=== PATIENT | female | born 1985 | race Caucasian/White ===

== ENCOUNTER 2019-05-08 05:45 | Inpatient (IN) | payer MEDICAID ==
[2019-05-08] VITALS (11 sets, daily range): BP systolic 124–152; BP diastolic 62–96; PULSE 50–80; RESP 16–20; Ht 162.6 cm; Wt 85.0 kg
[~2019-05-08] VITALS: Ht 162.6 cm; Wt 85.0 kg
[~2019-05-08 05:45] MED LIST: ONDANSETRON 4 MG INJ IV ONE
[2019-05-08] MEDS ORDERED: LACTATED RINGER'S 1,000 ML IV SCH (05:56)
[2019-05-08] MEDS ORDERED: OXYTOCIN 30 UNITS/LR 500 ML IV SCH ×2 (06:00→12:33)
[2019-05-08] MEDS ORDERED: CARBOPROST 250 MCG INJ IM PRN ×2 (06:00→13:00)
[2019-05-08] MEDS ORDERED: CEFAZOLIN 2 GM/50 ML (PMX) 50 ML IVPB SCH (06:00)
[2019-05-08] MEDS ORDERED: OXYTOCIN 30 UNITS/LR 500 ML IV PRN ×2 (06:00→13:00)
[2019-05-08] MEDS ORDERED: MISOPROSTOL 200 MCG TAB PR PRN ×2 (06:00→13:00)
[2019-05-08] MEDS ORDERED: METHYLERGONOVINE 0.2 MG INJ IM PRN ×2 (06:00→13:00)
[2019-05-08] MEDS ORDERED: CITRIC ACID/NA CITRATE 30 ML CUP PO ONE (07:00)
--- NOTE | 2019-05-08 07:27 | PREAC ---
Date/Time of Note Date/Time of Note DATE: 05/08/19 TIME: 07:25 Anesthesia Eval and Record Evaluation Time Pre-Procedure Interview DATE: 05/08/19 TIME: 07:25 Age 33 Sex female NPO: 8 hrs Preoperative diagnosis PREVIOUS C SECTION Planned procedure REPEAT C SECTION Past Medical History Past Medical History: Includes Cardio: HTN : : (2), Para: (1), Gestational age: (38 5/7 WEEKS) Surgery & Anesthesia Issues No known issue Meds Anticoagulation: No Beta Immanuel within 24 hr: No Reason Beta Immanuel not given: Pt. not on B-Immanuel Current Medications Lactated Ringer's 1,000 ml @ 125 mls/hr Q8H IV Last administered on 05/08/19at 06:19; Admin Dose 125 MLS/HR; Start 05/08/19 at 05:56 Cefazolin Sodium/ Dextrose 50 ml @ 100 mls/hr ONCE IVPB ; Start 05/08/19 at 06:00 Oxytocin/Lactated Ringer's 500 ml @ 125 mls/hr POST IV ; Start 05/08/19 at 06:00 Oxytocin/Lactated Ringer's 500 ml @ 0 mls/hr ONCE PRN IV .VAGINAL BLEEDING; Start 05/08/19 at 06:00 Methylergonovine Maleate (Methergine) 0.2 mg ONCE PRN IM .VAGINAL BLEEDING; Start 05/08/19 at 06:00 Carboprost Tromethamine (Hemabate) 250 mcg ONCE PRN IM .VAGINAL BLEEDING; Start 05/08/19 at 06:00 Misoprostol (Cytotec) 1,000 mcg ONCE PRN WI .VAGINAL BLEEDING; Start 05/08/19 at 06:00 Meds reviewed: Yes Allergies Coded Allergies: No Known Allergy (Unverified , 05/08/19) Allergies Reviewed: Yes Labs/Studies Labs Reviewed: Reviewed by anesthesiologist Result Diagram: 05/08/1961805/08/19618 Laboratory Tests 05/08/19 06:19 test: N/A Pre-procedure Exam Last vitals Vital Signs Date Temp Pulse Resp B/P (MAP) Pulse Ox O2 O2 Flow FiO2 Time Delivery Rate 05/08/19 98.3 74 18 144/96 Room Air 06:20 (112) Airway: Adequate mouth opening, Adequate thyromental dist Mallampati: Mallampati II Teeth: Normal Lung: Normal Heart: Normal ASA Physical Status ASA physical status: 2 Emergency: None Planned Anesthetic Neuraxial: Spinal Planned Pain Management Sub-arachniod narcotics Pre-operative Attestations Prior to commencing anesthesia and surgery, the patient was re-evaluated, there was verification of: *The patient's identity *The results of appropriate recent lab work and preoperative vital signs *The above evaluation not changing prior to induction *Anesthetic plan, risk benefits, alternative and complications discussed with patient/family; questions answered; patient/family understands, accepts and wishes to proceed. Kerwin Robertson M.D. May 08, 2019 07:26
[2019-05-08] MEDS ORDERED: morphine SULFATE/PF (10 MG/10 ML) INJ ONE (07:28)
[2019-05-08] MEDS ORDERED: OXYTOCIN 10 UNIT INJ ONE (07:28)
[2019-05-08] MEDS ORDERED: METOCLOPRAMIDE 10 MG INJ ONE (07:28)
[2019-05-08] MEDS ORDERED: EPHEDrine 25 MG/5 ML SYG IV PRN (07:30)
[2019-05-08] MEDS ORDERED: DIPHENHYDRAMINE 50 MG INJ IV PRN ×2 (07:30)
[2019-05-08] MEDS ORDERED: FENTAnyl 50 MCG/ML VIAL IV PRN ×3 (07:30)
[2019-05-08] MEDS ORDERED: NALOXONE (0.4 MG/ML) INJ IV PRN (07:30)
[2019-05-08] MEDS ORDERED: LABETALOL HCL 20MG INJ IV PRN (07:30)
[2019-05-08] MEDS ORDERED: TRIMETHOBENZAMIDE 100 MG/ML VIAL IM PRN ×2 (07:30)
[2019-05-08] MEDS ORDERED: HYDROmorphONE 1 MG/5 ML IV SYRINGE IV PRN ×3 (07:30)
[2019-05-08] MEDS ORDERED: MIDAZOLAM 1 MG/ML 2 ML INJ IV PRN (07:30)
[2019-05-08] MEDS ORDERED: morphine 2 MG INJ IV PRN ×2 (07:30)
[2019-05-08] MEDS ORDERED: NALBUPHINE HCL (10 MG/1 ML) INJ IV PRN (07:30)
[2019-05-08] MEDS ORDERED: OXYCODONE/ACETAMINOPHEN (5/325) TAB PO PRN ×2 (07:30)
[2019-05-08] MEDS ORDERED: MEPERIDINE 25 MG INJ IV PRN (07:30)
[2019-05-08] MEDS ORDERED: ONDANSETRON 4 MG INJ IV PRN ×2 (07:30)
[2019-05-08] MEDS ORDERED: HYDROmorphONE 0.5 MG/0.5 ML SYG IV PRN ×2 (07:30)
[2019-05-08] MEDS ORDERED: ALBUTEROL 0.083% (NEB) 2.5 MG/3 ML AMP HHN PRN (07:30)
[2019-05-08] MEDS ORDERED: IPRATROPIUM (NEB) 0.5 MG/2.5 ML AMP HHN PRN (07:30)
[2019-05-08] MEDS ORDERED: KETOROLAC 30 MG INJ IV PRN (07:30)
[2019-05-08] MEDS ORDERED: ZOLPIDEM 5 MG TAB PO PRN (07:30)
[2019-05-08] MEDS ORDERED: hydrALAzine 20 MG INJ IV PRN (07:30)
[2019-05-08] MEDS ORDERED: CITRIC ACID/NA CITRATE 30 ML CUP ONE (07:39)
--- NOTE | 2019-05-08 07:43 | HP ---
Date/Time of Note Date/Time of Note DATE: 05/08/19 TIME: 07:30 OB - History Hx of Present Free Text/Dictation 33 years old 2 para 1-0-0-1 with single intrauterine at 38 weeks and 5 days with a RADHA of 05/17/2019 with gestational hypertension and previous delivery complaining of uterine contractions. She states good movement. She denies nausea, vomiting, shortness of breath, chest pain, headache, visual changes, vaginal bleeding or LOF. Chief Complaint: Uterine contractions, sreekanth for delivery for previous C/S, GHTN Estimated Due Date: May 17, 2019 : 2 Para: 1 Spontaneous : 0 Therapeutic : 0 Care: Good Care Ultrasounds: Normal mid trimester US Obstetrical Complications: Gestational Hypertension Past Family/Social History * Past Medical, Surgical, Family and Obstetric Histories reviewed from chart. Blood Type: A+ Rubella: immune RPR/VDRL: Negative GBS Status: Negative HBsAG: Negative OB Admission Exam Vital Signs Vital Signs Vital Signs Date Temp Pulse Resp B/P (MAP) Pulse Ox O2 O2 Flow FiO2 Time Delivery Rate 05/08/19 98.3 74 18 144/96 Room Air 06:20 (112) Physical Exam HEENT: WNL Heart: Rhythm Normal Lungs: Clear Abdomen: WNL Extremities: Normal Reflexes: Normal Membranes: Intact Heart Rate: 130's Accelerations: Accelerations Present Decelerations: No Decelerations Varibility: Moderate Contractions on Admission: < 5 Minutes Apart Intensity: Mild Last 72 hours Lab Results CBC & BMP 05/08/19 06:19 Liver Function Test 05/08/19 06:19 Alanine Aminotransferase (ALT/SGPT) 23 Albumin 3.6 Alkaline Phosphatase 287 H Aspartate Amino Transf (AST/SGOT) 30 Direct Bilirubin 0.00 Total Protein 7.3 OB Assessment/Plan Other plan: 33 years old 2 para 1-0-0-1 with single intrauterine at the 38 weeks and 5 days with gestational hypertension, previous delivery complaining of uterine contractions. She declined TOLAC. -FHR: No sign of metabolic acidosis- Category I -Continuous EFM, toco -CBC, blood type and screen -Please see the orders -A+/Rubella: Immune -GBS: Negative The risk of delivery including but not limited to bleeding, infection, injury to other organs (bowel, bladder, ureter, vessels, nerves), injury to fetus, blood transfusion, blood transfusion related infection, risk of anesthesia, adhesion, needs for future , removal of uterus or any other indicated surgery was discussed with the patient and her family. She expressed understanding. All of her questions were answered. She signed the informed consent. PHYSICIAN'S VERIFICATION OF INFORMED CONSENT The patient was counseled regarding the procedure, its indications, risks, potential complications and alternatives and any questions were answered. Consent was obtained. PLANNED PROCEDURE/TREATMENT: delivery with possible using vacuum/forceps and any other indicated surgery PHYSICIAN'S VERIFICATION OF INFORMED CONSENT FOR BLOOD TRANSFUSION: There is a reasonable possibility that blood transfusion will be necessary as a result of the patient's procedure. I have discussed the following with the patient/patient's legal office services representative: An explanation of the benefits and risks of the transfusion of blood or blood products and the possible alternatives. All questions have been answered to the patient's satisfaction. INFORMED CONSENT:The patient has been informed of: The nature of the proposed care, treatment, services, medications, interventions or procedures. Potential benefits, risks or side effects, including potential problems related to recuperation. The likelihood of achieving care treatment and service goals. Reasonable alternatives to the proposed care, treatment and service. The relevant risks, benefits and side effects related to alternatives, including the possible results of not receiving care, treatment and services. When indicated, any limitations on the confidentiality of information learned from or about the patient. If appropriate, the risks, benefits and alternatives of the drugs to be used for sedation/analgesia including moderate sedation. If appropriate, patient has been provided information on the risks, benefits and alternatives to the transfusion of blood and/or blood products. If appropriate, patient has been provided information regarding the [place] Blood Act. TALITA HENDRIX May 08, 2019 07:43
[2019-05-08] MEDS ORDERED: DEXAMETHASONE 4 MG/ML 1 ML INJ ONE (08:22)
[2019-05-08] MEDS ORDERED: MIDAZOLAM 1 MG/ML 2 ML INJ ONE (08:25)
--- NOTE | 2019-05-08 09:13 | PAC ---
Date/Time of Note Date/Time of Note DATE: 05/08/19 TIME: 09:13 Post-Anesthesia Notes Post-Anesthesia Note Last documented vital signs Vital Signs Date Temp Pulse Resp B/P (MAP) Pulse Ox O2 O2 Flow FiO2 Time Delivery Rate 05/08/19 98.3 74 18 144/96 Room Air 06:20 (112) Activity: WNL Respiratory function: WNL Cardiovascular function: WNL Mental status: Baseline Pain reasonably controlled: Yes Hydration appropriate: Yes Nausea/Vomiting absent: Yes Kerwin Robertson M.D. May 08, 2019 09:13
--- NOTE | 2019-05-08 09:28 | OPR ---
Operative Report Planned Procedure Procedure date May 08, 2019 Procedure(s) Repeat low transverse delivery Performed by see signature line Cloth Finisher: RAMU MASTERS MD Anesthesiologist: Kerwin Robertson M.D. Pre-procedure diagnosis 33 years old 2 para 1-0-0-1 with single intrauterine at 38 weeks and 5 days with a RADHA of 05/17/2019 with gestational hypertension and previous delivery desires repeat delivery [id number] Anesthesia Type: [id number] spinal Post-Procedure Post-procedure diagnosis 33 years old 2 para 1-0-0-1 with single intrauterine at 38 weeks and 5 days with a RADHA of 05/17/2019 with gestational hypertension and pre vious delivery desires repeat delivery Findings 1. Normal uterus, fallopian tubes and ovaries 2. Viable male in cephalic presentation. 8 at one minute and 9 in 5 minutes. Weight: 3335 g. Time of delivery: 08: 14 3. Placenta with three vessel cord 4. Amniotic fluid - Clear Estimated Blood Loss: 500 - 600 mls Specimen(s) none Grafts/Implant(s) none Complication(s) none Pt Condition post procedure: stable Disposition: PACU Procedure Description INDICATION AND HISTORY: A 33 years old 2 para 1-0-0-1 with single intrauterine at 38 weeks and 5 days with a RADHA of 05/17/2019 with gestational hypertension and previous delivery desires repeat delivery. The risk of delivery including but not limited to bleeding, infection, injury to other organs (bowel, bladder, ureter, vessels, nerves), injury to fetus, blood transfusion, blood transfusion related infection, risk of anesthesia, adhesion, needs for future , removal of uterus or any other indicated surgery was discussed with the patient and her family. She expressed understanding. All of her questions were answered. She signed the informed consent. DESCRIPTION OF OPERATION: The patient was taken to the operating room, where she was identified and the procedure was verified. The patient received two gram of Ancef 30 minutes prior to surgery. Spinal anesthesia was placed by anesthesiologist. The patient placed in the dorsal supine position with a left tilt. The heart rate was 130 bpm. The patient was then prepped and draped in the normal sterile fashion. A Pfannenstiel skin incision was made and carried down to the fascia with knife. The fascia was incised in the midline and the fascial incision was carried laterally with Caro scissors. The superior portion of the fascial inc ision was then grasped with Kaleb clamps and tented up and dissected off the underlying rectus muscle with sharp dissection. The lower portion of the fascial incision was then made in a similar fashion. The rectus muscle was and the peritoneum was entered. The peritoneal incision was then stretched and a bladder blade was inserted. Then, an incision was made in the lo wer uterine segment in a transverse fashion with a knife and extended bluntly. Vacuum used to assist delivery of head. The was delivered atraumatically in cephalic presentation with the above findings. The umbilical cord was clamped and cut. The neonatology resuscitation team was present and the baby was handed to them. A cord blood sample was obtained for further evaluation. The placenta and membrane, which appeared normal were Removed. The uterus was exteriorized and cleared of all clot and debris. The uterus was then closed in a two layer fashion with 0-Monocryl. At the time of closure, hemostasis was noted. The gutters were irrigated. The peritoneum was reapproximated with 3-0 Vicryl. The muscle was reapproximated with 3-0 Vicryl. The fascia was approximated with 0-Vicryl in a running fashion. The subcutaneous tissue was re approximated with 3-0 Vicryl. The skin was closed with 4-0 Monocryl. All instruments, sponges and needle counts were correct x3. The patient tolerated the procedure well. She transferred to the recovery room in stable condition. TALITA HENDRIX May 08, 2019 09:28
[2019-05-08] MEDS ORDERED: LABETALOL 200 MG TAB PO PRN (12:00)
[2019-05-08] MEDS: DEXTROSE 5%-LR 1,000 ML IV SCH (12:33)
[2019-05-08] MEDS ORDERED: MAGNESIUM HYDROXIDE 30ML CUP PO PRN (13:00)
[2019-05-08] MEDS ORDERED: METHYLERGONOVINE 0.2 MG TAB PO PRN (13:00)
[2019-05-08] MEDS ORDERED: LANOLIN HPA 1 PKT TOP PRN (13:00)
[2019-05-08] MEDS: SENNA/DOCUSATE NA (8.6MG/50MG) TAB PO SCH (20:53)
[2019-05-09] VITALS: BP 132/78; PULSE 68; RESP 19
[2019-05-09] MEDS: DEXTROSE 5%-LR 1,000 ML IV SCH ×2 (00:42→04:33)
[2019-05-09 04:00] VITALS: BP 141/77; PULSE 73; RESP 18
[2019-05-09 07:50] VITALS: BP 121/72; PULSE 77; RESP 17
[2019-05-09] MEDS: SENNA/DOCUSATE NA (8.6MG/50MG) TAB PO SCH ×2 (08:44→20:56)
[2019-05-09] MEDS ORDERED: HYDROCODONE/APAP (5/325) TAB NGT PRN (11:00)
[2019-05-09] MEDS ORDERED: DIPHTH/TET/ACEL PERTUSS (ADULT) 0.5 ML VIAL IM* ONE (11:00)
--- NOTE | 2019-05-09 13:07 | PN ---
Date/Time of Note Date/Time of Note DATE: 05/09/19 TIME: 13:05 OB Subjective Subjective Subjective Denies any nausea vomiting. Breast-feeding. Has not passed gas yet. Ambula ting. Vomited yesterday and today feels improvement. Vaginal bleeding in the amount of menses. OB Objective Objective Objective General appearance: Alert and oriented x4 does not appear to be in any acute distress abdomen: Soft, appropriate tenderness in the incision. Incision: Clean dry and intact Lungs: Clear to auscultation bilaterally CV: RRR Extremities: 1+ bilateral lower extremity symmetric edema VS - Last 72 Hours, by Label Date Temp Pulse Resp B/P (MAP) Pulse Ox O2 O2 Flow FiO2 Time Delivery Rate 05/09/19 98.1 77 17 121/72 98 Room Air 07:50 (88) 05/09/19 98.2 73 18 141/77 97 Room Air 04:00 (98) 05/09/19 98.5 68 19 132/78 98 Room Air 00:00 (96) 05/08/19 97.8 64 20 141/81 97 Room Air 19:20 (101) 05/08/19 62 124/62 17:00 (82) 05/08/19 98.1 58 18 152/83 15:34 (106) 05/08/19 97.4 50 17 142/88 96 Room Air 12:30 (106) 05/08/19 80 18 131/72 100 Room Air 11:30 (91) 05/08/19 63 18 129/87 100 Room Air 11:15 (101) 05/08/19 65 18 148/73 100 Room Air 11:00 (98) 05/08/19 63 16 146/82 100 Room Air 10:45 (103) 05/08/19 97.4 69 18 148/75 100 Room Air 10:30 (99) 05/08/19 72 18 144/74 100 Room Air 10:15 (97) 05/08/19 98.3 74 18 144/96 Room Air 06:20 (112) Laboratory Tests Test 05/09/19 06:24 05/09/19 07:14 Lab Scanned Report REFERENCE LAB White Blood Count 14.5 #H Red Blood Count 3.48 L Hemoglobin 10.8 L Hematocrit 32.0 L Mean Corpuscular Volume 92.0 Mean Corpuscular Hemoglobin 31.0 Mean Corpuscular Hemoglobin Concent 33.8 Red Cell Distribution Width 14.0 Platelet Count 151 Mean Platelet Volume 12.4 H Immature Granulocytes % 0.500 H Neutrophils % 79.6 H Lymphocytes % 14.0 L Monocytes % 5.8 Eosinophils % 0.0 Basophils % 0.1 Nucleated Red Blood Cells % 0.0 Immature Granulocytes # 0.070 H Neutrophils # 11.5 H Lymphocytes # 2.0 Monocytes # 0.8 Eosinophils # 0.0 Basophils # 0.0 Nucleated Red Blood Cells # 0.0 OB Assessment/Plan Other Assessment: Status post Postoperative day #1 Doing well Mild anemia, asymptomatic, postop Routine postop care Increase ambulation, advance diet HAILEY BARTON MD May 09, 2019 13:07
[2019-05-09] MEDS: IBUPROFEN 800 MG TAB PO SCH ×2 (13:14→22:12)
[2019-05-09] MEDS: HYDROCODONE/APAP (5/325) TAB GTB SCH ×2 (13:14→22:12)
[2019-05-09 16:00] VITALS: BP 143/86; PULSE 76; RESP 18
[2019-05-09 19:10] VITALS: BP 127/73; PULSE 74; RESP 18
[2019-05-10 03:27] VITALS: BP 120/59; PULSE 69; RESP 18
[2019-05-10] MEDS: IBUPROFEN 800 MG TAB PO SCH ×3 (05:52→23:15)
[2019-05-10] MEDS: HYDROCODONE/APAP (5/325) TAB GTB SCH ×3 (05:53→22:00)
[2019-05-10 07:20] VITALS: BP 133/90; PULSE 83; RESP 18
[2019-05-10] MEDS: SENNA/DOCUSATE NA (8.6MG/50MG) TAB PO SCH ×2 (08:51→20:09)
--- NOTE | 2019-05-10 16:42 | QN ---
Documentation Comment no c/o no bm yet vss afebrile abdomen soft wound dry lochia min calf neg for tenderness A S/P R c/s #2 P d/s home in am WARD GRUBER MD May 10, 2019 16:42
[2019-05-10 16:43] VITALS: BP 141/80; PULSE 68; RESP 18
[2019-05-10 20:00] VITALS: BP 133/87; PULSE 72; RESP 19
[2019-05-11 04:00] VITALS: BP 137/85; PULSE 66; RESP 17
[2019-05-11] MEDS: IBUPROFEN 800 MG TAB PO SCH ×2 (05:21→13:43)
[2019-05-11] MEDS: HYDROCODONE/APAP (5/325) TAB GTB SCH ×2 (05:22→13:42)
[2019-05-11 08:00] VITALS: BP 148/91; PULSE 66; RESP 18
[2019-05-11] MEDS: SENNA/DOCUSATE NA (8.6MG/50MG) TAB PO SCH (09:00)
[2019-05-11] MEDS ORDERED: DIPHTH/TET/ACEL PERTUSS (ADULT) 0.5 ML VIAL IM* ONE (09:00)
[2019-05-11] MEDS ORDERED: MEASLES,MUMPS,RUBELLA VACCINE INJ SC* ONE (09:00)
[2019-05-11 11:57] VITALS: BP 142/89; PULSE 72; RESP 16
--- NOTE | 2019-05-11 12:43 | PN ---
Date/Time of Note Date/Time of Note DATE: 05/11/19 TIME: 12:40 OB Subjective Subjective Subjective Patient denies any headache, blurred vision, epigastric pain, right upper atilio drant pain. Denies any fever or chills. Denies any lightheadedness, dizziness, she is ambulating. Resting. Urinated. Passed flatus. OB Objective Objective Objective General appearance: Alert and oriented x4 does not appear to be in any acute distressabdomen Abdomen: Soft, fundus palpable 2 cm below the umbilicus. Appropriate tenderness in the incision noted. Incision: Clean dry and intact Breast: No evidence of mastitis or fissure, breast fullness noted Extremities: No calf tenderness, no click no edema no cord palpable VS - Last 72 Hours, by Label Date Temp Pulse Resp B/P (MAP) Pulse Ox O2 O2 Flow FiO2 Time Delivery Rate 05/11/19 72 16 142/89 Room Air 11:57 (106) 05/11/19 99.0 66 18 148/91 Room Air 08:00 (110) 05/11/19 98.3 66 17 137/85 Room Air 04:00 (102) 05/10/19 97.8 72 19 133/87 Room Air 20:00 (102) 05/10/19 97.3 68 18 141/80 Room Air 16:43 (100) 05/10/19 98.4 83 18 133/90 Room Air 07:20 (104) 05/10/19 98.9 69 18 120/59 Room Air 03:27 (79) 05/09/19 98.1 74 18 127/73 Room Air 19:10 (91) 05/09/19 99.0 76 18 143/86 Room Air 16:00 (105) 05/09/19 98.1 77 17 121/72 98 Room Air 07:50 (88) 05/09/19 98.2 73 18 141/77 97 Room Air 04:00 (98) 05/09/19 98.5 68 19 132/78 98 Room Air 00:00 (96) 05/08/19 97.8 64 20 141/81 97 Room Air 19:20 (101) 05/08/19 62 124/62 17:00 (82) 05/08/19 98.1 58 18 152/83 15:34 (106) OB Assessment/Plan Other Assessment: Status post section for PIH and repeat Blood pressure currently well controlled and in the range of 130s 140s over 80s to 90s Patient is currently asymptomatic She is a stable for discharge currently Recommended the patient to have a follow-up in 3 days after discharge from the hospital with primary OB office for follow-up of the blood pressure. She understands importance of this follow-up Risk of superimposed preeclampsia in the first 2 weeks after delivery discussed with patient and precaution was given Currently asymptomatic Patient verbalized understanding. All questions were answered to the patient's best satisfaction. Breast fullness noted. Recommended patient to continue pumping of the breast to prevent of engorgement. HAILEY BARTON MD May 11, 2019 12:43
--- NOTE | 2019-05-11 12:44 | PD.PPDC ---
ASSEM[facility]ER UNIT Discharge Instruction Condition [id number] Patient Condition: [id number] Good Diet [id number] Diet: Afpox4p Special Diet (Low-sodium diet) Activity/Restrictions [id number] Restrictions: Iuizo1s No Exercising No Lifting No Driving Minimize Walking No Sexual Activity Nothing in the Vagina No Coral No Tampons, douche Follow-up Follow-up with Physician: 3, Day/Days Provider Information: Follow-up in 3 days with the office for follow-up of the blood pressure as well as 6 weeks Return to clinic for [id number] Instructions: Aqmep0e Fever greater than 101 Chills Worsening abdominal pain Excessive Vaginal Bleeding More than 2 pads per hour Unable to tolerate diet [id number] OB Instructions: Vprne7b Breast Tenderness Depression Blurried Vision Headache [id number] Surgical Instructions: [id number] Incisional Drainage Incisional Redness HAILEY BARTON MD May 11, 2019 12:44
[2019-05-11] MEDS ORDERED: IBUP800T48 PO (12:47)
[2019-05-11] MEDS ORDERED: Lanolin Hpa TOP (12:47)
--- NOTE | 2019-05-11 12:49 | DS ---
Date/Time of Note Date/Time of Note DATE: 05/11/19 TIME: 12:48 Discharge Summary Admission/Discharge Info Admit Date/Time May 08, 2019 at 05:45 Discharge Date/Time May 11 Discharge Diagnosis PIH History of section Patient Condition: Good Consults N/A Procedures Repeat section Hx of Present Illness Ms. Ruthy Fung is a 24-year-old 2, para 1, EDC 05/08/2019. Her at 40 weeks and 1 day gestational age, presented to triage early this morning in labor. She was 5 cm dilated. She had history of section. She was noted to have PIH. She underwent repeat section, Her intraop and post op course was non otherwise complicated. Her BP was controlled without meds. Her vitals were stable, She was asymptomatic. Her BP was in the range of 130-140/70-90 She was advised to have a follow up in 3 days with the OB office with strict preclampsia precaution as well as follow up in 6 weeks with the office again, Hospital Course Complicated by PIH, asymptomatic,. BP improved Home Meds Active Scripts [Lanolin Hpa] 1 APPLIC OINT No Conflict Check, 1 APPLIC TOP BEDSIDE MEDICATION PRN for .NIPPLES, #1 1 Refill Prov:HAILEY BARTON MD 05/11/19 Ibuprofen* (Motrin*) 800 Mg Tab, 800 MG PO Q8, #30 TAB 1 Refill Prov:HAILEY BARTON MD 05/11/19 Primary Care Provider Care Physician No Primary Time spent on discharge: > 30 minutes HAILEY BARTON MD May 11, 2019 12:49
--- NOTE | 2019-05-12 15:48 | DELSUM ---
Delivery Summary A-C Datetime Report Generated by N: 05/12/2019 15:48 DELIVERY PERSONNEL Museum Educator: Eula, Edwina MATERNAL INFORMATION Delivery Anesthesia: Spinal Medications in Delivery: see anesthesia notes Delivery QBL (ml): 300 Placenta Cultured: No Maternal Complications: Other Other Maternal Complications: maternal high blood pressure LABOR SUMMARY EDC: 05/17/2019 00:00 No. Babies in Womb: 1 Attempted: No Labor Anesthesia: None LABOR INFORMATION Reason for Induction: Not Applicable Oxytocin: N/A Group B Beta Strep: Negative Antibiotics # of Doses: 1 Antibiotics Time of Last Dose: 05/08/2019 07:37 Steroids Given: None (Annotations: Data stored by [facility] on behalf of user) Reason Steroids Not Administered: Not Applicable MEMBRANES Membranes Rupture Method: Artificial Rupture of Membranes: 05/08/2019 08:13 Length of Rupture (hr): 0.02 Amniotic Fluid Color: Clear Amniotic Fluid Amount: Moderate Amniotic Fluid Odor: None STAGES OF LABOR Stage 3 hr: 0 Stage 3 min: 2 CSECTION DELIVERY Primary Indication: Repeat Elective Other Primary Indication: high blood pressure CSection Urgency: Non Elective CSection Incidence: Repeat Labor: No Labor Elective: Nonelective CSection Incision: Lower Uterine Transverse BABY A INFORMATION Delivery Date/Time: 05/08/2019 08:14 Method of Delivery: Born in Route : No : N/A Forceps: N/A Vacuum Extraction: Successful Shoulder Dystocia : N/A ASSISTED DELIVERY BABY A Indication for Assisted Delivery: see md notes Catheter Prior to Procedure: No Vacuum Number of Pulls: 1 Vacuum Number of PopOffs: 0 Reduce Pressure btwn Ctx: Yes Vacuum Airfield Engineer Officer: kilit Total Time Vacuum Applied: 30 SECS Vacuum/Forceps Comment: CONTROLLED BY MD SHOULDER DYSTOCIA BABY A Delivery Date/Time: 05/08/2019 08:14 PRESENTATION/POSITION BABY A Presentation: Cephalic Cephalic Presentation: Vertex Vertex Position: Left Occipital Anterior Breech Presentation: N/A PLACENTA INFORMATION BABY A Placenta Delivery Time : 05/08/2019 08:16 Placenta Method of Delivery: Manual Removal Placenta Status: Delivered SCORES BABY A Heart Rate 1 min: >100 bpm Resp Effort 1 min: Good Cry Reflex Irritability 1 min: Cough/Sneeze/Pulls Away Muscle Tone 1 min: Active Motion Color 1 min: Blue/Pale Resuscitation Effort 1 min: Tactile Stimulation SCORE 1 MIN: 8 Heart Rate 5 min: >100 bpm Resp Effort 5 min: Good Cry Reflex Irritability 5 min: Cough/Sneeze/Pulls Away Muscle Tone 5 min: Active Motion Color 5 min: Body Gustine, Extremit Blue Resuscitation Effort 5 min: Tactile Stimulation SCORE 5 MIN: 9 INFORMATION BABY A Gestational Age at Delivery: 38.5 Gestational Status: Early Term- 37- 38.6 Weeks Infant Outcome : Liveborn Condition : Stable Sex: Male IDENTIFICATION/MEDS BABY A ID Band Number: [id number] ID Band Location: Right Leg; Left Arm Sensor Applied: Yes Sensor Number: [id number] Sensor Location : Cord Clamp Vitamin K Given : Not Given Erythromycin Given: Not Given WEIGHT/LENGTH BABY A Infant Birthweight (gm): 3335 Weight (lb): 7 Weight (oz): 6 Infant Length (in): 20.50 Infant Length (cm): 52.07 CORD INFORMATION BABY A No. Cord Vessels: 3 Nuchal Cord : N/A Cord Blood Taken: Yes Infant Suction: Mouth; Nose ASSESSMENT BABY A Infant Complications: None Physical Findings at Delivery: Within Normal Limits Infant Respirations: Appears Normal Strategic Debriefing Specialist/ALS Called : Yes Infant Care By: RT Transferred To: Remains with Mother
== END 2019-05-11 15:25 | disposition home or self-care (01) | DRG 788 ==
LOC: L-D 05:45 → PP1 12:25
PROVIDERS: ADMIT Obstetrics & Gynecology; ATTEND Obstetrics & Gynecology
PROC: 10D00Z1 Extraction of Products of Conception, Low, Open Approach (ICD-10-PCS; principal; 2019-05-08 07:30)
DX: O13.4 Gestational [pregnancy-induced] hypertension without significant proteinuria, complicating childbirth (principal); O34.211 Maternal care for low transverse scar from previous cesarean delivery; O90.81 Anemia of the puerperium; D64.9 Anemia, unspecified; Z3A.38 38 weeks gestation of pregnancy; Z37.0 Single live birth
CPT/HCPCS: 80053; 81001; 81003; 84560; 85025; 85610; 85730; 86592; 86850; 86900; 86901; 87340; 99464; J0690; J1100; J1885; J2250; J2274; J2405; J2590; J2765; J7120; J7121